=== PATIENT | female | born 1960 | race Caucasian/White ===

== ENCOUNTER 2017-04-09 19:16 | Emergency (ER) | payer MEDICAID ==
[~2017-04-09 19:16] MED LIST: ESTR0.5T PO; TRAZ150T75 PO; TRIA0.022 TOPICAL
[2017-04-09 19:19] VITALS: BP 138/74; PULSE 125; RESP 15; TEMP 99.1; O2SAT 96
== END 2017-04-09 21:31 | disposition left against medical advice (07) ==
LOC: NED 19:16
DX: M79.601 Pain in right arm (principal); Z53.21 Procedure and treatment not carried out due to patient leaving prior to being seen by health care provider
CPT/HCPCS: 99281